=== PATIENT | female | born 1995 | race Caucasian/White ===

== ENCOUNTER 2018-08-23 09:34 | Emergency (ER) | payer MEDICAID ==
[2018-08-23] MEDS: KETOROLAC 60 MG INJ IM (10:32)
[2018-08-23] MEDS: ONDANSETRON (ODT) 4 MG TAB ODT (10:32)
== END 2018-08-23 10:43 | disposition home or self-care (01) ==
LOC: FTE 09:34
DX: M54.9 Dorsalgia, unspecified (principal); R42 Dizziness and giddiness
CPT/HCPCS: 81025; 96372; 99284-25